=== PATIENT | female | born 1995 | race Two or more races ===

== ENCOUNTER 2023-06-28 09:45 | Emergency (ER) | payer OTHER ==
[2023-06-28 09:52] VITALS: BP 104/64; PULSE 76; RESP 18; TEMP 97.6; BMI 23.6
== END 2023-06-28 11:23 | disposition home or self-care (01) ==
LOC: JERFT 09:45
DX: M79.641 Pain in right hand (principal); M79.642 Pain in left hand
CPT/HCPCS: 99282-25